=== PATIENT | male | born 1985 | race African-American/Black ===

== ENCOUNTER 2020-06-22 18:26 | Emergency (ER) | payer OTHER ==
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
[2020-06-22] MEDS ORDERED: BACITRACIN 15 GM TUBE TOPICAL OINTMENT TP ONE (18:33)
[2020-06-22 18:39] VITALS: BP 143/89; PULSE 66; TEMP 97.9; BMI 25.0
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
== END 2020-06-22 19:40 | disposition home or self-care (01) ==
LOC: JER 18:26 → EDBD 18:26 → JERFT 18:26
DX: H11.31 Conjunctival hemorrhage, right eye (principal)
CPT/HCPCS: 99283-25